=== PATIENT | male | born 1955 | race Caucasian/White ===

== ENCOUNTER 2017-05-18 07:49 | Day surgery (SDC) | payer OTHER ==
[2017-05-18] MEDS ORDERED: LACTATED RINGERS 1,000 ML IV ONE (08:01)
[2017-05-18] MEDS ORDERED: MIDAZOLAM 2 MG/2 ML VIAL IVP ONE (08:49)
[2017-05-18] MEDS ORDERED: fentaNYL 100 MCG/2 ML VIAL IVP ONE (08:49)
[2017-05-18 09:52] VITALS: BP 156/70
== END 2017-05-18 07:50 | disposition home or self-care (01) ==
LOC: SDS 07:49
PROVIDERS: ATTEND Surgery
PROC: 0DBM8ZX Excision of Descending Colon, Via Natural or Artificial Opening Endoscopic, Diagnostic (ICD-10-PCS; principal; 2017-05-18 09:00)
DX: D12.4 Benign neoplasm of descending colon (principal); K57.30 Diverticulosis of large intestine without perforation or abscess without bleeding; K64.8 Other hemorrhoids; E11.9 Type 2 diabetes mellitus without complications; I10 Essential (primary) hypertension; E78.00 Pure hypercholesterolemia, unspecified; Z79.84 Long term (current) use of oral hypoglycemic drugs; Z82.49 Family history of ischemic heart disease and other diseases of the circulatory system; Z83.3 Family history of diabetes mellitus; Z87.891 Personal history of nicotine dependence
CPT/HCPCS: 45380; J7120

== ENCOUNTER 2019-04-29 08:00 | Outpatient (CLI) | payer OTHER ==
[2019-04-29 13:22] LABS: CALCIUM 9.4 mg/dL (8.5-10.3); CREATININE 1.6 mg/dL (0.6-1.2); PHOSPHORUS 3.6 mg/dL (2.5-4.6)
[2019-04-29 19:06] LABS: MICROALBUM/CREATININE RATIO,UR 777.2 ug/mg (<30.0); MICROALBUMIN,URINE 88.6 mg/dL (0-300.0)
== END 2019-04-29 23:59 ==
LOC: LAB.WCP 08:00
PROVIDERS: ATTEND Family Medicine
DX: I12.9 Hypertensive chronic kidney disease with stage 1 through stage 4 chronic kidney disease, or unspecified chronic kidney disease (principal); E11.22 Type 2 diabetes mellitus with diabetic chronic kidney disease; N18.3 Chronic kidney disease, stage 3 (moderate)
CPT/HCPCS: 36415; 80048; 82043; 82570; 83970; 84100

== ENCOUNTER 2019-06-02 08:30 | Outpatient (CLI) | payer OTHER ==
--- NOTE | 2019-06-02 12:39 | Ultrasound Report ---
Reason: CHRONIC KIDNEY DISEASE, STAGE III, HYPERTENSION, B Procedure Date: 06/02/2019 Accession Number: [id number] / [id number] Procedure: US - Retroperitoneal CPT Code: FULL RESULT: EXAM: RENAL ULTRASOUND EXAM DATE: 06/02/2019 08:46 AM. CLINICAL HISTORY: CHRONIC KIDNEY DISEASE, STAGE III, HYPERTENSION, B. COMPARISON: ABDOMEN ULTRASOUND 10/04/2009 9:44 AM. TECHNIQUE: Real-time scanning was performed with static images obtained. FINDINGS: Right Kidney: 12.8 x 6.4 x 5.6 cm. There is a complex cystic structure superior to the right kidney upper pole measuring 3.4 x 2.9 x 3 cm, with questionable connection to the kidney by a short neck. This was not seen on the 10/04/2009 ultrasound. Cannot exclude tiny nonobstructing stone inferior pole right kidney. Lobulated contour. Normal echotexture with no other potential stones, contour-deforming solid masses, or hydronephrosis. Left Kidney: 11.9 x 7.1 x 5.8 cm. Dromedary hump with lobular contour. Normal echotexture with no stones, contour-deforming masses, or hydronephrosis. Bladder: Bilateral jets seen. The prevoid bladder volume was 293 cc. The postvoid bladder volume was 14 cc. Other: None. IMPRESSION: 1. New complex cystic structure 3.4 x 2.9 x 3 cm superior to the upper pole right kidney, question exophytic cyst. Suggest follow-up retroperitoneal ultrasound or CT in 3 months for reassessment. 2. Otherwise similar appearance of the kidneys compared with 2009. [facility] ADDENDUM: 06/06/19 10:03 Clinical request for Bosniak classification of the cystic structure superior to the right kidney. Bosniak classification is used with CT or MRI findings, not ultrasound. However the cystic structure is not a simple cyst by ultrasound but contains internal echoes. Further evaluation by contrast-enhanced CT or MRI is suggested.
== END 2019-06-02 08:31 | disposition home or self-care (01) ==
LOC: DI 08:30
PROVIDERS: ATTEND Family Medicine
DX: I12.9 Hypertensive chronic kidney disease with stage 1 through stage 4 chronic kidney disease, or unspecified chronic kidney disease (principal); N18.3 Chronic kidney disease, stage 3 (moderate); E11.22 Type 2 diabetes mellitus with diabetic chronic kidney disease; R19.09 Other intra-abdominal and pelvic swelling, mass and lump
CPT/HCPCS: 76770

== ENCOUNTER 2019-06-16 06:08 | Outpatient (CLI) | payer OTHER ==
[2019-06-16 06:43] LABS: CREATININE 1.6 mg/dL (0.6-1.2)
[2019-06-16] MEDS ORDERED: GADOBUTROL 15 MMOL/15 ML VIAL ONE (07:12)
[2019-06-16] MEDS ORDERED: GADOBUTROL 15 MMOL/15 ML VIAL IVP ONE (09:03)
--- NOTE | 2019-06-17 12:01 | MRI Report ---
Reason: AODM, CHRONIC KIDNEY DISEASE STAGE III, ABN US DYLAN Procedure Date: 06/16/2019 Accession Number: [id number] / [id number] Procedure: MRI - Abdomen W/WO CPT Code: FULL RESULT: EXAM: MR ABDOMEN WITH AND WITHOUT CONTRAST EXAM DATE: 06/16/2019 09:01 AM. CLINICAL HISTORY: Abnormal renal ultrasound. Chronic kidney disease, stage III. COMPARISON: RETROPERITONEAL 06/02/2019 8:45 AM ABDOMEN 10/04/2009 9:44 AM. TECHNIQUE: Multiplanar breath-hold T1, T2, and DWI sequences obtained through the kidney and abdomen on an MR scanner. Images obtained before and after administration of 10 mL Gadavist intravenous contrast. Multiphase postcontrast sequences obtained through the abdomen. FINDINGS: Lung Bases: Unremarkable. Liver: The liver has normal size, morphology and signal. No evidence of mass. Gallbladder: The gallbladder is partially distended and appears normal with no wall thickening or stone. Bile Ducts: No intrahepatic or extrahepatic duct dilatation. Pancreas: The pancreas appears normal with no mass. The pancreatic duct measures 1-2 mm in diameter and appears normal with no stone or stricture. Spleen: The spleen appears normal. Kidneys: The kidneys appear intact with no hydronephrosis. There is no mass identified in the upper pole right kidney. A tiny cyst is suggested in the lower pole right kidney. Adrenals: There is a mass in the right adrenal gland measuring approximately 3.5 x 3.2 cm. The mass demonstrates equivocal (10-20%) loss of signal on T1 out of phase imaging. The mass homogeneously enhances on the postcontrast imaging but without appreciable washout on 8 minute series. The left adrenal gland is normal. Bowel: The visualized segments of the small bowel and colon appear normal with no inflammation or obstruction. Retroperitoneum: The retroperitoneal structures appear normal with no mass or lymphadenopathy. Other: None. IMPRESSION: 3.5 x 3.2 cm mass in the right adrenal gland corresponding to findings seen on ultrasound. The mass demonstrates equivocal loss of signal on T1 out of phase imaging although enhancement and washout pattern is indeterminate. Overall, the finding favors an adrenal adenoma, however, more definitive evaluation with adrenal protocol CT is suggested. If IV contrast is contraindicated, then consider PET CT for further evaluation. No renal mass demonstrated. [facility]
== END 2019-06-16 06:09 | disposition home or self-care (01) ==
LOC: DI 06:08
PROVIDERS: ATTEND Family Medicine
DX: E11.22 Type 2 diabetes mellitus with diabetic chronic kidney disease (principal); N18.3 Chronic kidney disease, stage 3 (moderate); E27.9 Disorder of adrenal gland, unspecified
CPT/HCPCS: 36415; 74183; 82565; A9585

== ENCOUNTER 2019-12-02 08:00 | Outpatient (CLI) | payer OTHER ==
[2019-12-02 19:37] LABS: CALCIUM 9.1 mg/dL (8.5-10.3); CREATININE 1.6 mg/dL (0.6-1.2)
[2019-12-02 20:09] LABS: HB2 TOTAL 12.5 g/dL; HEMOGLOBIN A1C 0.65 g/dL; HEMOGLOBIN A1C % 6.9 % (4.6-6.2)
[2019-12-02 20:24] LABS: CREATININE,URINE 75.6 mg/dL; MICROALBUM/CREATININE RATIO,UR 2383.6 ug/mg (<30.0); MICROALBUMIN,URINE 180.2 mg/dL (0-300.0)
== END 2019-12-02 23:59 | disposition home or self-care (01) ==
LOC: LAB.WCP 08:00
PROVIDERS: ATTEND Family Medicine
DX: E11.22 Type 2 diabetes mellitus with diabetic chronic kidney disease (principal); N18.3 Chronic kidney disease, stage 3 (moderate)
CPT/HCPCS: 36415; 80048; 82043; 82570; 83036